=== PATIENT | male | born 1995 | race Caucasian/White ===

== ENCOUNTER 2017-10-28 23:15 | Emergency (ER) | payer OTHER ==
[~2017-10-28] VITALS: Ht 177.8 cm; Wt 80.7 kg
[2017-10-28 23:19] VITALS: BP 137/113; Ht 177.8 cm; Wt 80.7 kg
== END 2017-10-29 00:16 | disposition left against medical advice (07) ==
LOC: ED 23:15
DX: Z53.21 Procedure and treatment not carried out due to patient leaving prior to being seen by health care provider (principal)